=== PATIENT | male | born 1930 | race African-American/Black ===

== ENCOUNTER 2016-08-07 11:33 | Emergency (ER) | payer MEDICARE ==
[~2016-08-07] VITALS: Ht 175.3 cm; Wt 97.0 kg
[~2016-08-07 11:33] MED LIST: ALLO300T46 PO; BUPR-43 PO; KDUR10 PO; OLME40TA12 PO; TAMS-11 PO
[2016-08-07] MEDS ORDERED: LORA1TAB PO (11:57)
[2016-08-07] MEDS ORDERED: MONT10TA21 PO (11:57)
[2016-08-07] MEDS ORDERED: LORA10TA7 PO (11:57)
[2016-08-07] MEDS ORDERED: LISI2.5T47 PO (11:57)
[2016-08-07] MEDS ORDERED: FURO20TA4 PO (11:57)
[2016-08-07 12:57] LABS: BASOPHILS % 0.5 % (0.0-2.0); EOSINOPHILS % 3.4 % (0.0-5.0); HEMATOCRIT. 41.5 % (42.0-52.0); HEMOGLOBIN. 13.9 g/dL (14.0-18.0); LYMPHOCYTES % 31.7 % (20.0-50.0); MEAN CORPUSCULAR HEMOGLOBIN 32.6 pg (28.0-32.0); MEAN CORPUSCULAR HGB CONC 33.3 g/dL (31.0-37.0); MEAN CORPUSCULAR VOLUME 97.9 fL (80.0-94.0); MEAN PLATELET VOLUME 9.6 fl (7.4-10.4); MONOCYTES % 11.8 % (2.0-8.0); NEUTROPHILS % 52.6 % (40.0-76.0); PLATELET 131 x1000/uL (130-400); RED BLOOD CELL COUNT 4.25 mill/uL (4.7-6.1); RED CELL DISTRIBUTION WIDTH 14.1 % (11.6-14.6); WHITE BLOOD COUNT 5.7 x1000/uL (4.5-11.0)
[2016-08-07 13:06] LABS: CALCIUM 8.8 mg/dL (8.5-10.1)
[2016-08-07 13:14] LABS: TROPONIN I 0.04 ng/mL (0.00-0.04)
[2016-08-07] MEDS ORDERED: METHYLPREDNISOLONE SOD SUCC 125 MG/2 ML VIAL IV STA (13:26)
[2016-08-07] MEDS ORDERED: ALBUTEROL (0.083%) 2.5MG/3ML NEB HHN STA (13:26)
[2016-08-07 15:33] VITALS: BP 136/53
== END 2016-08-07 15:40 | disposition home or self-care (01) ==
LOC: ER 13:36
DX: I11.0 Hypertensive heart disease with heart failure (principal); I50.9 Heart failure, unspecified; J45.909 Unspecified asthma, uncomplicated; J44.9 Chronic obstructive pulmonary disease, unspecified; E78.00 Pure hypercholesterolemia, unspecified; I10 Essential (primary) hypertension; Z79.899 Other long term (current) drug therapy
CPT/HCPCS: 36415; 71010; 80048; 83880; 84484; 85025; 93005; 96374; 99285; J2930; J7611

== ENCOUNTER 2017-06-28 13:06 | Inpatient (IN) | payer MEDICARE ==
[~2017-06-28] VITALS: Ht 175.3 cm; Wt 99.8 kg
[~2017-06-28 13:06] MED LIST changes: -ALLO300T46 PO; +ALLO300T74 PO; +FURO20TA4 PO; +LISI2.5T47 PO; +LORA10TA7 PO; +LORA1TAB PO; +MONT10TA21 PO
[2017-06-28] MEDS ORDERED: ACETAMINOPHEN 325MG TABLET PO STA (14:31)
[2017-06-28] MEDS ORDERED: SODIUM CHLORIDE 0.9% 1000ML BAG (SEPSIS BOLUS) IV ONE (14:45)
[2017-06-28 15:00] LABS: BASOPHILS % 0.2 % (0.0-2.0); EOSINOPHILS % 0.1 % (0.0-5.0); HEMATOCRIT. 42.3 % (42.0-52.0); HEMOGLOBIN. 14.1 g/dL (14.0-18.0); LYMPHOCYTES % 11.2 % (20.0-50.0); MEAN CORPUSCULAR HEMOGLOBIN 32.4 pg (28.0-32.0); MEAN CORPUSCULAR VOLUME 96.9 fL (80.0-94.0); MEAN PLATELET VOLUME 10.5 fl (7.4-10.4); MONOCYTES % 11.4 % (2.0-8.0); NEUTROPHILS % 77.1 % (40.0-76.0); PLATELET 103 x1000/uL (130-400); RED BLOOD CELL COUNT 4.36 mill/uL (4.7-6.1); RED CELL DISTRIBUTION WIDTH 14.3 % (11.6-14.6)
[2017-06-28 15:05] LABS: CHLORIDE 106 mEq/L (98-107)
[2017-06-28 15:08] LABS: INR 1.3; PROTHROMBIN TIME 13.5 sec (9.4-11.6)
[2017-06-28] MEDS ORDERED: SODIUM CHLORIDE 0.9% 1,000 ML IV ONE (15:30)
[2017-06-28] MEDS ORDERED: CEFTRIAXONE 1 G PREMIX 50 ML IV ONE (16:00)
[2017-06-28 16:28] LABS: CLARITY URINE CLOUDY (CLEAR); COLOR URINE YELLOW (YELLOW); KETONES URINE 1+ (NEGATIVE); LEUKOCYTE ESTERASE URINE 2+ (NEGATIVE); NITRITE URINE NEGATIVE (NEGATIVE); OCCULT BLOOD URINE TRACE (NEGATIVE); PROTEIN URINE TRACE (NEGATIVE); SPECIFIC GRAVITY URINE 1.019 (1.005-1.030)
[2017-06-28] MEDS ORDERED: MORPHINE SULFATE 2 MG/ML CPJ (NOT FOR IM USE) IV PRN (19:00)
[2017-06-28] MEDS ORDERED: ACETAMINOPHEN 650MG/20.3ML UDC PO PRN (19:30)
[2017-06-28 20:00] VITALS: BP 148/82
[2017-06-28] MEDS ORDERED: ENOXAPARIN 40MG/0.4ML SYR SUBCUT SCH (20:00)
[2017-06-28 20:12] VITALS: BP 148/82
[2017-06-28] MEDS: SODIUM CHLORIDE 0.45% 1,000 ML IV SCH (20:26)
[2017-06-28] MEDS: HYDRALAZINE HCL 50MG TABLET PO SCH (20:27)
[2017-06-28] MEDS: PANTOPRAZOLE 40MG DR TABLET PO SCH (20:27)
[2017-06-28] MEDS: ASPIRIN 81MG TABLET PO SCH (20:28)
[2017-06-28] MEDS: TAMSULOSIN HCL 0.4MG SR CAPSULE PO SCH (20:28)
[2017-06-28] MEDS ORDERED: IPRATROPIUM/ALBUTEROL 0.5-3(2.5)MG/3ML NEB HHN PRN (20:45)
[2017-06-28] MEDS ORDERED: LEVOFLOXACIN 250MG PREMIX 50 ML IV SCH (21:00)
[2017-06-29 00:36] VITALS: BP 148/81
[2017-06-29 04:00] VITALS: BP 135/58
[2017-06-29 06:28] LABS: BASOPHILS % 0.2 % (0.0-2.0); EOSINOPHILS % 0.4 % (0.0-5.0); HEMATOCRIT. 36.8 % (42.0-52.0); HEMOGLOBIN. 12.4 g/dL (14.0-18.0); LYMPHOCYTES % 22.6 % (20.0-50.0); MEAN PLATELET VOLUME 11.7 fl (7.4-10.4); MONOCYTES % 12.8 % (2.0-8.0); PLATELET 102 x1000/uL (130-400); RED BLOOD CELL COUNT 3.76 mill/uL (4.7-6.1); RED CELL DISTRIBUTION WIDTH 14.4 % (11.6-14.6)
[2017-06-29 08:00] VITALS: BP 131/66
[2017-06-29 08:12] LABS: CHLORIDE 107 mEq/L (98-107); HDL CHOLESTEROL 36 mg/dL (40-59); LDL CHOLESTEROL 108 mg/dL (5-100)
[2017-06-29] MEDS: ASPIRIN 81MG TABLET PO SCH (08:49)
[2017-06-29] MEDS: PANTOPRAZOLE 40MG DR TABLET PO SCH (08:49)
[2017-06-29] MEDS: TAMSULOSIN HCL 0.4MG SR CAPSULE PO SCH (08:49)
[2017-06-29] MEDS: HYDRALAZINE HCL 50MG TABLET PO SCH (08:49)
[2017-06-29 12:00] VITALS: BP 124/70
[2017-06-29] MEDS ORDERED: POTASSIUM CHLORIDE 10MEQ TABLET SR PO NR (13:15)
[2017-06-29] MEDS: SODIUM CHLORIDE 0.45% 1,000 ML IV SCH (13:34)
[2017-06-29 16:00] VITALS: BP 110/62
== END 2017-06-29 17:30 | disposition home or self-care (01) | DRG 872 ==
LOC: ER 14:03 → 7WST 15:53 → EDBEDREQ 15:57 → ENRESERV 17:20
PROVIDERS: ADMIT Internal Medicine; ATTEND Internal Medicine
DX: A41.9 Sepsis, unspecified organism (principal); J44.9 Chronic obstructive pulmonary disease, unspecified; N39.0 Urinary tract infection, site not specified; E78.00 Pure hypercholesterolemia, unspecified; I12.9 Hypertensive chronic kidney disease with stage 1 through stage 4 chronic kidney disease, or unspecified chronic kidney disease; M10.9 Gout, unspecified; N18.9 Chronic kidney disease, unspecified; N40.0 Benign prostatic hyperplasia without lower urinary tract symptoms; Z79.899 Other long term (current) drug therapy
CPT/HCPCS: 36415; 71045; 80053; 80061; 81001; 83605; 83690; 84153; 84443; 84550; 85025; 85610; 87040; 87077; 87086; 87186; 87804; 93005; 94664; 99285; J0696; J1650; J1956; J2270; J7030; J7620

== ENCOUNTER 2021-05-06 19:16 | Inpatient (IN) | payer MEDICARE ==
[~2021-05-06] VITALS: Ht 175.3 cm; Wt 79.4 kg
[~2021-05-06 19:16] MED LIST changes: -ALLO300T74 PO; +ATOR40TA70 MT; -BUPR-43 PO; +BUPR-46 PO; +CARV6.2548 MT; +FURO-152 MT; -FURO20TA4 PO; -KDUR10 PO; +MONT10TA32 MT; +OLME40TA11 PO; -OLME40TA12 PO; +POTA20TA82 MT; +TAMS0.4C31 MT
[2021-05-06] MEDS ORDERED: ONDANSETRON HCL 4MG/2ML INJ IV STA (20:15)
[2021-05-06] MEDS ORDERED: MORPHINE SULFATE 4 MG/ML CPJ (NOT FOR IM USE) IV STA (20:15)
[2021-05-06] MEDS ORDERED: ASPIRIN 81MG TABLET PO ONE (20:15)
[2021-05-06] MEDS: SODIUM CHLORIDE 0.9% 1,000 ML IV ONE ×2 (20:49→21:15)
[2021-05-06] MEDS ORDERED: NITROGLYCERIN OINT 1GM/INCH UDPKT TD ONE (21:15)
[2021-05-06] MEDS ORDERED: FUROSEMIDE 40MG/4ML VIAL IV ONE (21:15)
[2021-05-06 21:44] LABS: HEMATOCRIT. 42.1 % (42.0-52.0); HEMOGLOBIN. 13.9 g/dL (14.0-18.0); MEAN CORPUSCULAR HEMOGLOBIN 32.8 pg (28.0-32.0); MEAN CORPUSCULAR VOLUME 99.3 fL (80.0-94.0); MEAN PLATELET VOLUME 10.9 fl (7.4-10.4); PLATELET 111 x1000/uL (130-400); RED BLOOD CELL COUNT 4.24 mill/uL (4.7-6.1); RED CELL DISTRIBUTION WIDTH 14.7 % (11.6-14.6)
[2021-05-06 21:45] LABS: CHLORIDE 109 mEq/L (98-107)
[2021-05-06 21:51] LABS: D-DIMER 2.06 mg/L FEU (<0.50); INR 1.1; PROTHROMBIN TIME 12.1 sec (9.6-11.0)
[2021-05-06 22:36] LABS: PLATELET ESTIMATE DECREASED
[2021-05-06] MEDS ORDERED: IOHEXOL-350 100 ML BOTTLE ONE (23:23)
[2021-05-07 12:00] VITALS: BP 147/78
[2021-05-07] MEDS ORDERED: ACETAMINOPHEN 325MG TABLET PO PRN (12:30)
[2021-05-07] MEDS ORDERED: IPRATROPIUM/ALBUTEROL 0.5-3(2.5)MG/3ML NEB HHN PRN (12:30)
[2021-05-07] MEDS ORDERED: ONDANSETRON HCL 4MG/2ML INJ IV PRN (12:30)
[2021-05-07 13:15] VITALS: BP 147/78
[2021-05-07] MEDS ORDERED: NALOXONE HCL 0.4MG/ML VIAL IV PRN (13:30)
[2021-05-07] MEDS ORDERED: CLOP-31 PO (15:30)
[2021-05-07 16:00] VITALS: BP 125/59
[2021-05-07] MEDS: ENOXAPARIN 40MG/0.4ML SYR SUBCUT SCH (16:08)
[2021-05-07] MEDS: MONTELUKAST SODIUM 10MG TABLET PO SCH (16:09)
[2021-05-07] MEDS: LISINOPRIL 2.5MG TABLET PO SCH ×2 (16:09→16:31)
[2021-05-07] MEDS: TAMSULOSIN HCL 0.4MG SR CAPSULE PO SCH (16:10)
[2021-05-07] MEDS: LORATADINE 10MG TABLET PO SCH (16:10)
[2021-05-07] MEDS: FUROSEMIDE 40MG/4ML VIAL IV SCH (16:41)
[2021-05-07 16:50] LABS: CREATINE KINASE MB FRACTION 2.4 ng/mL (0.5-3.6)
[2021-05-07 17:13] VITALS: BP 147/78
[2021-05-07 20:00] VITALS: BP 142/75
[2021-05-07] MEDS: CARVEDILOL 6.25 MG TABLET PO SCH (21:16)
[2021-05-07] MEDS: ATORVASTATIN CALCIUM 40MG TABLET PO SCH (21:16)
[2021-05-07 23:29] LABS: CREATINE KINASE MB FRACTION 1.7 ng/mL (0.5-3.6)
[2021-05-08] VITALS: BP 99/58
[2021-05-08 04:00] VITALS: BP 104/62
[2021-05-08] MEDS: HYDROCODONE/ACETAMINOPHEN 5/325MG TABLET PO PRN (06:42)
[2021-05-08 07:45] LABS: HEMATOCRIT. 41.6 % (42.0-52.0); HEMOGLOBIN. 13.6 g/dL (14.0-18.0); MEAN CORPUSCULAR HEMOGLOBIN 32.6 pg (28.0-32.0); MEAN CORPUSCULAR VOLUME 99.5 fL (80.0-94.0); MEAN PLATELET VOLUME 10.8 fl (7.4-10.4); PLATELET 118 x1000/uL (130-400); RED BLOOD CELL COUNT 4.18 mill/uL (4.7-6.1); RED CELL DISTRIBUTION WIDTH 14.7 % (11.6-14.6)
[2021-05-08 07:46] LABS: CHLORIDE 103 mEq/L (98-107)
[2021-05-08 07:57] LABS: HDL CHOLESTEROL 55 mg/dL (40-59)
[2021-05-08 07:59] LABS: T4 FREE 1.09 ng/dL (0.76-1.46)
[2021-05-08 08:00] VITALS: BP 109/58
[2021-05-08 08:02] LABS: LDL CHOLESTEROL 61 mg/dL (5-100)
[2021-05-08] MEDS: FUROSEMIDE 40MG/4ML VIAL IV SCH ×2 (08:34→17:09)
[2021-05-08] MEDS: MONTELUKAST SODIUM 10MG TABLET PO SCH (08:34)
[2021-05-08] MEDS: LORATADINE 10MG TABLET PO SCH (08:35)
[2021-05-08] MEDS: CARVEDILOL 6.25 MG TABLET PO SCH ×2 (08:35→20:51)
[2021-05-08] MEDS: LISINOPRIL 2.5MG TABLET PO SCH (08:35)
[2021-05-08] MEDS: TAMSULOSIN HCL 0.4MG SR CAPSULE PO SCH (08:35)
[2021-05-08] MEDS ORDERED: TAMSULOSIN HCL 0.4MG SR CAPSULE PO SCH (09:00)
[2021-05-08 12:00] VITALS: BP 94/44
[2021-05-08] MEDS: ENOXAPARIN 40MG/0.4ML SYR SUBCUT SCH (13:55)
[2021-05-08] MEDS: ASPIRIN 81MG TABLET PO SCH (14:15)
[2021-05-08] MEDS ORDERED: LORAZEPAM 2MG/ML CPJ IV PRN (14:15)
[2021-05-08] MEDS ORDERED: BISACODYL 10MG SUPP PR PRN (14:15)
[2021-05-08] MEDS ORDERED: HYDROCODONE/ACETAMINOPHEN 5/325MG TABLET PO PRN (14:15)
[2021-05-08] MEDS ORDERED: IPRATROPIUM/ALBUTEROL 0.5-3(2.5)MG/3ML NEB HHN PRN (14:15)
[2021-05-08 16:00] VITALS: BP 104/61
[2021-05-08 20:00] VITALS: BP 104/65
[2021-05-08 20:14] LABS: PLATELET ESTIMATE DECREASED
[2021-05-08] MEDS: ATORVASTATIN CALCIUM 40MG TABLET PO SCH (20:51)
[2021-05-09] VITALS (7 sets, daily range): BP systolic 100–123; BP diastolic 59–80
[2021-05-09] MEDS: LISINOPRIL 2.5MG TABLET PO SCH (09:00)
[2021-05-09] MEDS: CARVEDILOL 6.25 MG TABLET PO SCH ×2 (09:00→21:00)
[2021-05-09] MEDS: FUROSEMIDE 40MG/4ML VIAL IV SCH ×2 (09:10→17:58)
[2021-05-09] MEDS: ASPIRIN 81MG TABLET PO SCH (09:10)
[2021-05-09] MEDS: MONTELUKAST SODIUM 10MG TABLET PO SCH (09:19)
[2021-05-09] MEDS: TAMSULOSIN HCL 0.4MG SR CAPSULE PO SCH (09:27)
[2021-05-09] MEDS: LORATADINE 10MG TABLET PO SCH (09:28)
[2021-05-09] MEDS ORDERED: LACTULOSE 20G/30ML UDC PO NR (17:00)
[2021-05-09] MEDS: ENOXAPARIN 40MG/0.4ML SYR SUBCUT SCH (17:59)
[2021-05-09] MEDS: ATORVASTATIN CALCIUM 40MG TABLET PO SCH (22:12)
[2021-05-10] VITALS: BP 124/71
[2021-05-10 04:00] VITALS: BP 106/76
[2021-05-10 06:45] LABS: HEMATOCRIT. 41.1 % (42.0-52.0); HEMOGLOBIN. 13.9 g/dL (14.0-18.0); MEAN CORPUSCULAR HEMOGLOBIN 33.6 pg (28.0-32.0); MEAN CORPUSCULAR VOLUME 99.4 fL (80.0-94.0); MEAN PLATELET VOLUME 10.5 fl (7.4-10.4); PLATELET 129 x1000/uL (130-400); RED BLOOD CELL COUNT 4.13 mill/uL (4.7-6.1); RED CELL DISTRIBUTION WIDTH 14.3 % (11.6-14.6)
[2021-05-10 08:00] VITALS: BP 120/65
[2021-05-10] MEDS: TAMSULOSIN HCL 0.4MG SR CAPSULE PO SCH (08:55)
[2021-05-10] MEDS: ASPIRIN 81MG TABLET PO SCH (08:55)
[2021-05-10] MEDS: FUROSEMIDE 40MG/4ML VIAL IV SCH ×2 (08:55→17:01)
[2021-05-10] MEDS: MONTELUKAST SODIUM 10MG TABLET PO SCH (08:55)
[2021-05-10] MEDS: LISINOPRIL 2.5MG TABLET PO SCH (08:56)
[2021-05-10] MEDS: CARVEDILOL 6.25 MG TABLET PO SCH ×2 (08:56→22:00)
[2021-05-10] MEDS: LORATADINE 10MG TABLET PO SCH (08:56)
[2021-05-10 12:00] VITALS: BP 105/66
[2021-05-10 12:52] LABS: PLATELET ESTIMATE SLIGHTLY DECREASED
[2021-05-10] MEDS: ENOXAPARIN 40MG/0.4ML SYR SUBCUT SCH (14:22)
[2021-05-10 16:00] VITALS: BP 108/59
[2021-05-10] MEDS: HYDROCODONE/ACETAMINOPHEN 5/325MG TABLET PO PRN (17:01)
[2021-05-10 20:00] VITALS: BP 115/62
[2021-05-10] MEDS: ATORVASTATIN CALCIUM 40MG TABLET PO SCH (22:00)
[2021-05-11] VITALS: BP 100/60
[2021-05-11 04:00] VITALS: BP 106/57
[2021-05-11 08:00] VITALS: BP 119/62
[2021-05-11] MEDS: MONTELUKAST SODIUM 10MG TABLET PO SCH (08:59)
[2021-05-11] MEDS: LISINOPRIL 2.5MG TABLET PO SCH (09:00)
[2021-05-11] MEDS: TAMSULOSIN HCL 0.4MG SR CAPSULE PO SCH (09:00)
[2021-05-11] MEDS: FUROSEMIDE 40MG/4ML VIAL IV SCH (09:00)
[2021-05-11] MEDS: CARVEDILOL 6.25 MG TABLET PO SCH ×2 (09:01→20:39)
[2021-05-11] MEDS: LORATADINE 10MG TABLET PO SCH (09:01)
[2021-05-11] MEDS: DEXAMETHASONE 4MG/ML 1ML VIAL IV SCH ×2 (11:28→17:38)
[2021-05-11 12:00] VITALS: BP 121/65
[2021-05-11 16:00] VITALS: BP 103/65
[2021-05-11 17:22] LABS: BASOPHILS % 0.1 % (0.0-2.0); EOSINOPHILS % 0.3 % (0.0-5.0); HEMOGLOBIN. 14.6 g/dL (14.0-18.0); LYMPHOCYTES % 17.4 % (20.0-50.0); MEAN CORPUSCULAR HEMOGLOBIN 33.4 pg (28.0-32.0); MEAN CORPUSCULAR VOLUME 98.6 fL (80.0-94.0); MEAN PLATELET VOLUME 10.6 fl (7.4-10.4); MONOCYTES % 3.2 % (2.0-8.0); PLATELET 141 x1000/uL (130-400); RED BLOOD CELL COUNT 4.36 mill/uL (4.7-6.1); RED CELL DISTRIBUTION WIDTH 14.1 % (11.6-14.6)
[2021-05-11 17:30] LABS: INR 1.1; PROTHROMBIN TIME 12.2 sec (9.6-11.0)
[2021-05-11 18:11] LABS: CLARITY URINE CLEAR (CLEAR); COLOR URINE YELLOW (YELLOW); KETONES URINE NEGATIVE (NEGATIVE); LEUKOCYTE ESTERASE URINE 2+ (NEGATIVE); NITRITE URINE NEGATIVE (NEGATIVE); OCCULT BLOOD URINE NEGATIVE (NEGATIVE); PH URINE 7.5 (4.5-8.0); PROTEIN URINE NEGATIVE (NEGATIVE); SPECIFIC GRAVITY URINE 1.016 (1.005-1.030)
[2021-05-11 20:00] VITALS: BP 118/73
[2021-05-11] MEDS: ATORVASTATIN CALCIUM 40MG TABLET PO SCH (20:40)
[2021-05-12] VITALS: BP 105/45
[2021-05-12] MEDS ORDERED: DEXT 5%/0.45% NACL 1000ML 1,000 ML IV SCH
[2021-05-12] MEDS: DEXAMETHASONE 4MG/ML 1ML VIAL IV SCH ×3 (00:25→12:55)
[2021-05-12 04:00] VITALS: BP 126/69
[2021-05-12 07:00] LABS: BASOPHILS % 0.2 % (0.0-2.0); HEMATOCRIT. 42.9 % (42.0-52.0); HEMOGLOBIN. 14.3 g/dL (14.0-18.0); LYMPHOCYTES % 15.9 % (20.0-50.0); MEAN CORPUSCULAR HEMOGLOBIN 33.3 pg (28.0-32.0); MEAN CORPUSCULAR VOLUME 99.8 fL (80.0-94.0); MEAN PLATELET VOLUME 10.2 fl (7.4-10.4); MONOCYTES % 6.1 % (2.0-8.0); NEUTROPHILS % 77.8 % (40.0-76.0); PLATELET 144 x1000/uL (130-400)
[2021-05-12 08:00] VITALS: BP 116/65
[2021-05-12] MEDS: CARVEDILOL 6.25 MG TABLET PO SCH (09:39)
[2021-05-12] MEDS: LISINOPRIL 2.5MG TABLET PO SCH (09:39)
[2021-05-12] MEDS: MONTELUKAST SODIUM 10MG TABLET PO SCH (09:39)
[2021-05-12] MEDS: LORATADINE 10MG TABLET PO SCH (09:40)
[2021-05-12] MEDS: TAMSULOSIN HCL 0.4MG SR CAPSULE PO SCH (09:40)
[2021-05-12 12:00] VITALS: BP 100/55
[2021-05-12 12:03] VITALS: BP 100/55
== END 2021-05-12 14:00 | disposition home health service (06) | DRG 551 ==
LOC: ER 19:16 → MICUSO 21:32 → EDBEDREQ 21:37 → EDBEDREQTM 21:37 → 7EST 05-07 13:11
PROVIDERS: ADMIT Internal Medicine Pulmonary Disease; ATTEND Internal Medicine Pulmonary Disease
DX: M48.02 Spinal stenosis, cervical region (principal); I50.31 Acute diastolic (congestive) heart failure; I13.0 Hypertensive heart and chronic kidney disease with heart failure and stage 1 through stage 4 chronic kidney disease, or unspecified chronic kidney disease; J84.9 Interstitial pulmonary disease, unspecified; J45.901 Unspecified asthma with (acute) exacerbation; G95.20 Unspecified cord compression; E78.00 Pure hypercholesterolemia, unspecified; E66.9 Obesity, unspecified; D64.9 Anemia, unspecified; D69.6 Thrombocytopenia, unspecified; E78.5 Hyperlipidemia, unspecified; N18.9 Chronic kidney disease, unspecified; I44.0 Atrioventricular block, first degree; I44.7 Left bundle-branch block, unspecified; M51.36 Other intervertebral disc degeneration, lumbar region; Z20.822 Contact with and (suspected) exposure to COVID-19; M41.86 Other forms of scoliosis, lumbar region; M48.061 Spinal stenosis, lumbar region without neurogenic claudication; M48.04 Spinal stenosis, thoracic region; Z79.02 Long term (current) use of antithrombotics/antiplatelets; Z79.899 Other long term (current) drug therapy; Z86.73 Personal history of transient ischemic attack (TIA), and cerebral infarction without residual deficits; Z68.25 Body mass index [BMI] 25.0-25.9, adult; J45.909 Unspecified asthma, uncomplicated
CPT/HCPCS: 36415; 71045; 71275; 72141; 72146; 72148; 80048; 80053; 80061; 81003; 82550; 82553; 83880; 84439; 84443; 84484; 85025; 85379; 86850; 86900; 87426; 93005; 93306; 93923; 93970; 97116; 97162; 99285; J1100; J1650; J1940; J2270; J2405; J7030; Q9967; U0003; U0005

== ENCOUNTER 2022-05-26 08:44 | Inpatient (IN) | payer MEDICARE ==
[~2022-05-26] VITALS: Ht 175.3 cm; Wt 86.2 kg
[~2022-05-26 08:44] MED LIST changes: +CLOP-31 PO; +MONT-39 MT; -MONT10TA32 MT; +POTA-205 MT; -POTA20TA82 MT; -TAMS0.4C31 MT
[2022-05-26] MEDS ORDERED: CEFTRIAXONE 1 G PREMIX 50 ML IV ONE (09:45)
[2022-05-26] MEDS ORDERED: AZITHROMYCIN 500MG/250ML 250 ML IV ONE (09:45)
[2022-05-26 10:00] LABS: BASOPHILS % 0.6 % (0.0-2.0); EOSINOPHILS % 2.3 % (0.0-5.0); HEMATOCRIT. 40.6 % (42.0-52.0); HEMOGLOBIN. 13.7 g/dL (14.0-18.0); LYMPHOCYTES % 12.4 % (20.0-50.0); MEAN CORPUSCULAR HEMOGLOBIN 34.1 pg (28.0-32.0); MEAN CORPUSCULAR VOLUME 100.7 fL (80.0-94.0); MEAN PLATELET VOLUME 9.5 fl (7.4-10.4); MONOCYTES % 13.5 % (2.0-8.0); NEUTROPHILS % 71.2 % (40.0-76.0); PLATELET 146 x1000/uL (130-400); RED BLOOD CELL COUNT 4.03 mill/uL (4.7-6.1); RED CELL DISTRIBUTION WIDTH 14.3 % (11.6-14.6)
[2022-05-26 10:03] LABS: CHLORIDE 104 mEq/L (98-107)
[2022-05-26 10:29] LABS: BG BASE EXCESS 1.5 mmol/L (-2.0-2.0); BG CARBOXYHEMOGLOBIN 1.4 % (0.5-1.5); BG DEOXYHEMOGLOBIN 7.2 % (0.0-5.0); BG FRACTION INSPIRED OXYGEN 40; BG HCO3 ACT 25.8 mmol/L (22.0-26.0); BG METHEMOGLOBIN 0.4 % (0.0-1.5); BG OXYGEN SATURATION 92.7 % (92.0-98.5); BG PCO2 39.7 mmHg (35.0-45.0); BG PH 7.431 (7.350-7.450); BG SAMPLE SITE RIGHT BRACHIAL; BG VENT MODE MASK - BIPAP
[2022-05-26] MEDS ORDERED: ENALAPRIL 2.5MG/2ML VIAL 2ML IV ONE (10:30)
[2022-05-26] MEDS ORDERED: FUROSEMIDE 40MG/4ML VIAL IVP ONE (10:30)
[2022-05-26] MEDS ORDERED: ENALAPRIL 1.25MG/ML VIAL 1ML IV NR (10:30)
[2022-05-26] MEDS ORDERED: DIPHENHYDRAMINE 50MG/ML VIAL IV PRN (11:15)
[2022-05-26] MEDS ORDERED: ACETAMINOPHEN 325MG TABLET PO PRN (11:15)
[2022-05-26] MEDS ORDERED: CLONIDINE 0.1MG TABLET PO PRN (11:15)
[2022-05-26] MEDS ORDERED: IPRATROPIUM/ALBUTEROL 0.5-3(2.5)MG/3ML NEB HHN PRN (11:15)
[2022-05-26] MEDS ORDERED: ONDANSETRON HCL 4MG/2ML INJ IV PRN (11:15)
[2022-05-26 16:00] VITALS: BP 124/74
[2022-05-26] MEDS: LOSARTAN POTASSIUM 50 MG TABLET PO SCH (16:00)
[2022-05-26] MEDS: ASPIRIN 81MG EC TABLET PO SCH (16:00)
[2022-05-26 16:08] VITALS: BP 124/74
[2022-05-26 20:00] VITALS: BP 129/80
[2022-05-27] VITALS: BP 119/79
[2022-05-27 04:00] VITALS: BP 114/73
[2022-05-27 07:25] LABS: CHLORIDE 107 mEq/L (98-107)
[2022-05-27 07:40] LABS: HEMATOCRIT. 42.6 % (42.0-52.0); HEMOGLOBIN. 14.4 g/dL (14.0-18.0); MEAN CORPUSCULAR VOLUME 100.5 fL (80.0-94.0); MEAN PLATELET VOLUME 9.9 fl (7.4-10.4); PLATELET 162 x1000/uL (130-400); RED BLOOD CELL COUNT 4.24 mill/uL (4.7-6.1); RED CELL DISTRIBUTION WIDTH 14.3 % (11.6-14.6)
[2022-05-27 08:00] VITALS: BP 125/74
[2022-05-27] MEDS: LOSARTAN POTASSIUM 50 MG TABLET PO SCH ×2 (08:56→20:35)
[2022-05-27] MEDS: ASPIRIN 81MG EC TABLET PO SCH (08:56)
[2022-05-27] MEDS ORDERED: ENOXAPARIN 40MG/0.4ML SYR SUBCUT SCH (11:00)
[2022-05-27 11:13] LABS: PLATELET ESTIMATE NORMAL
[2022-05-27 12:00] VITALS: BP 116/80
[2022-05-27] MEDS ORDERED: FUROSEMIDE 40MG/4ML VIAL IVP SCH (13:15)
[2022-05-27] MEDS: ENOXAPARIN 30MG/0.3ML SYR SUBCUT SCH ×2 (14:06→23:38)
[2022-05-27 16:00] VITALS: BP 103/60
[2022-05-27] MEDS ORDERED: CARVEDILOL 6.25 MG TABLET PO SCH (17:00)
[2022-05-27 20:00] VITALS: BP 119/74
[2022-05-27] MEDS: TAMSULOSIN HCL 0.4MG SR CAPSULE PO SCH (20:35)
[2022-05-28] VITALS: BP 122/78
[2022-05-28 04:00] VITALS: BP 136/73
[2022-05-28 07:03] LABS: BASOPHILS % 0.6 % (0.0-2.0); EOSINOPHILS % 3.8 % (0.0-5.0); HEMATOCRIT. 43.2 % (42.0-52.0); HEMOGLOBIN. 14.6 g/dL (14.0-18.0); LYMPHOCYTES % 19.4 % (20.0-50.0); MEAN CORPUSCULAR VOLUME 100.6 fL (80.0-94.0); MEAN PLATELET VOLUME 9.8 fl (7.4-10.4); MONOCYTES % 14.2 % (2.0-8.0); PLATELET 169 x1000/uL (130-400); RED CELL DISTRIBUTION WIDTH 14.5 % (11.6-14.6)
[2022-05-28 07:25] LABS: CHLORIDE 102 mEq/L (98-107)
[2022-05-28 08:00] VITALS: BP 126/75
[2022-05-28] MEDS: FUROSEMIDE 20MG/2ML VIAL IVP SCH (10:18)
[2022-05-28] MEDS: CLOPIDOGREL 75MG TABLET PO SCH (10:19)
[2022-05-28] MEDS: LOSARTAN POTASSIUM 50 MG TABLET PO SCH ×2 (10:19→21:26)
[2022-05-28] MEDS: LORATADINE 10MG TABLET PO SCH (10:19)
[2022-05-28] MEDS: POTASSIUM CHLORIDE 20MEQ TABLET SR PO SCH (10:19)
[2022-05-28] MEDS: ASPIRIN 81MG EC TABLET PO SCH (10:19)
[2022-05-28 12:00] VITALS: BP 116/70
[2022-05-28] MEDS: ENOXAPARIN 30MG/0.3ML SYR SUBCUT SCH (12:28)
[2022-05-28 16:00] VITALS: BP 109/65
[2022-05-28] MEDS ORDERED: MONTELUKAST SODIUM 10MG TABLET PO SCH (17:00)
[2022-05-28] MEDS ORDERED: PREDNISONE 20MG TABLET PO SCH (17:45)
[2022-05-28] MEDS: METHYLPREDNISOLONE SOD SUCC 40 MG/ML VIAL IV SCH (18:11)
[2022-05-28 20:00] VITALS: BP 111/75
[2022-05-28] MEDS ORDERED: ATORVASTATIN CALCIUM 40MG TABLET PO SCH (21:00)
[2022-05-28] MEDS: TAMSULOSIN HCL 0.4MG SR CAPSULE PO SCH (21:27)
[2022-05-29] MEDS: ENOXAPARIN 30MG/0.3ML SYR SUBCUT SCH ×2 (00:29→11:17)
[2022-05-29] MEDS: METHYLPREDNISOLONE SOD SUCC 40 MG/ML VIAL IV SCH ×2 (02:23→09:30)
[2022-05-29 04:00] VITALS: BP 111/75
[2022-05-29 08:00] VITALS: BP 114/78
[2022-05-29] MEDS: CLOPIDOGREL 75MG TABLET PO SCH (09:31)
[2022-05-29] MEDS: LORATADINE 10MG TABLET PO SCH (09:31)
[2022-05-29] MEDS: ASPIRIN 81MG EC TABLET PO SCH (09:31)
[2022-05-29] MEDS: POTASSIUM CHLORIDE 20MEQ TABLET SR PO SCH (09:31)
[2022-05-29] MEDS: LOSARTAN POTASSIUM 50 MG TABLET PO SCH (09:31)
[2022-05-29] MEDS: FUROSEMIDE 20MG/2ML VIAL IVP SCH (09:32)
[2022-05-29] MEDS ORDERED: GUAIFENESIN 600MG ER TABLET PO NR (11:15)
[2022-05-29 12:00] VITALS: BP 135/70
[2022-05-29] MEDS ORDERED: P20 MT (12:13)
[2022-05-29 14:02] VITALS: BP 138/69
[2022-05-29] MEDS ORDERED: GUAIFENESIN 600MG ER TABLET PO SCH (21:00)
== END 2022-05-29 15:10 | disposition home or self-care (01) | DRG 291 ==
LOC: ER 08:52 → MICUSO 11:07 → EDBEDREQSVC 12:11 → 8WST 15:47
PROVIDERS: ADMIT Internal Medicine Pulmonary Disease; ATTEND Internal Medicine Pulmonary Disease
PROC: 5A09357 Assistance with Respiratory Ventilation, Less than 24 Consecutive Hours, Continuous Positive Airway Pressure (ICD-10-PCS; principal; 2022-05-26)
DX: I11.0 Hypertensive heart disease with heart failure (principal); I50.23 Acute on chronic systolic (congestive) heart failure; J96.01 Acute respiratory failure with hypoxia; J44.1 Chronic obstructive pulmonary disease with (acute) exacerbation; E46 Unspecified protein-calorie malnutrition; I82.403 Acute embolism and thrombosis of unspecified deep veins of lower extremity, bilateral; I42.9 Cardiomyopathy, unspecified; N40.0 Benign prostatic hyperplasia without lower urinary tract symptoms; I44.7 Left bundle-branch block, unspecified; E78.00 Pure hypercholesterolemia, unspecified; Z20.822 Contact with and (suspected) exposure to COVID-19; Z79.02 Long term (current) use of antithrombotics/antiplatelets; Z86.16 Personal history of COVID-19; Z79.899 Other long term (current) drug therapy; Z99.81 Dependence on supplemental oxygen
CPT/HCPCS: 36415; 36600; 71045; 78582; 80048; 80053; 82375; 82805; 83735; 83880; 84443; 84484; 85025; 85379; 87426; 93005; 93306; 93970; 94640; 94660; 99291; A9558; C9803; J0456; J0696; J1650; J1940; J2920; J3490